=== PATIENT | female | born 1995 | race Caucasian/White ===

== ENCOUNTER → 2019-01-14 | Outpatient (CLI) | payer OTHER ==
--- NOTE | 2019-01-14 20:23 | CONS ---
CONSULTATION DATE OF SERVICE: 01/14/2019 23-year-old lady who has [facility] problem. She has episodes of night terrors, sometimes seeing vivid dreams, screaming, sleep talking, feels sleepy during the day. HISTORY OF PRESENT ILLNESS/SLEEP-WAKE EVALUATION: Patient referred mostly of her sleep problems for about 1 year. Presently her sleep schedule on working days from around 10 p.m. until 6 a.m. and on weekends from midnight until 8 or 9 a.m. Usually no problems with falling asleep. No TV in bedroom. She prefers to sleep on the stomach position only. Does not like to sleep on the side or on the back position. She usually sleeps through the night, but sometimes as I already mentioned above may have episodes of night terrors, screaming, sleep talking and sometimes possible sleepwalking when she moved to another room and then did not remember it from the next day, positive history of panic attacks. In the morning, patient wakes up tired. Worries about her sleep, has problems with concentration and anxiety. She may take one nap on afternoon time. Usually drinks about 2 cups of coffee a day. No clear history of sleep paralysis or cataplexy, but possible hypnagogic hallucinations. PAST MEDICAL HISTORY: Positive for episodes of anxiety. MEDICATIONS: Presently none. In the past, the patient was tried on Celexa and Effexor to help for anxiety, but it was not good effect of this medication was documented. The patient stopped using them. SOCIAL HISTORY: Negative for smoking, alcohol consumption occasional. PAST SURGICAL HISTORY: Past surgical history basically negative except for wisdom teeth removed. REVIEW OF SYSTEMS: Some irregularities of menstrual periods with 5 days of periods. FAMILY HISTORY: Hypertension, hyperlipidemia, sinus problems, lung problems, snoring, cancer, mental illness, acid reflux. PHYSICAL EXAM: girl without distress. BP 117/63, HR 80, RR 16, height 5 feet 1-1/2 inches, weight 176 pounds. Body mass index 32.7, temperature 97.9. Oxygen saturation at room air 99%. HEENT: Oropharynx low position of soft palate. Mallampati 4. Restriction of nasal breathing. NECK 13-1/2 inches in circumference. Supple, no JVD. Thyroid is not palpable. LUNGS Clear to percussion and to auscultation. Good air exchange. No wheezing or rhonchi. HEART S1, S2 regular. No murmurs, gallops, or rubs. ABDOMEN: Slightly obese. Soft and nontender. Bowel sounds are present. No organomegaly appreciated. EXTREMITIES No clubbing or cyanosis. [employer] Awake, alert, and oriented X3. Cranial nerves 2 to 7 intact. There is no fasciculation or atrophy. noted. No focal deficits observed. IMPRESSION: 1. Mild snoring. Extremely low position of soft palate. Restriction of nasal breathing, sleepiness during the day. Differential diagnosis includes obstructive sleep apnea. 2. Episodes of night terrors. 3. Episodes of sleep walking. 4. Sleep talking. 5. History of anxiety. 6. 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 PLAN: 1. Polysomnography for evaluation of patient's breathing during sleep. Also to check for possibility of parasomnias. 2. CPAP/BiPAP titration if sleep study confirms obstructive sleep apnea-hypopnea syndrome. 3. Preferable position during sleep on the side. 4. No driving if patient feels any sleepiness. 5. I will see patient for follow up visit to explain results of testing and following plan. 6. Multiple sleep latency test if the sleep study will be negative for obstructive sleep apnea-hypopnea syndrome or significant periodic limb movements. 7. Precautions related to possibility of sleepwalking, close the door for screen doors, no access to fire at night. Thank you very much for referring this patient for consultation. Sincerely, Grover Cm MD, PhD, FAASM Diplomat of [employer] Research And Evaluation Manager of [facility] [place] MMODL / IJN: [id number] /
== END ==
LOC: SLEEP 13:10
PROVIDERS: ATTEND Internal Medicine
DX: F51.4 Sleep terrors [night terrors] (principal); F41.9 Anxiety disorder, unspecified; F51.3 Sleepwalking [somnambulism]; G47.10 Hypersomnia, unspecified; G47.419 Narcolepsy without cataplexy; Z99.89 Dependence on other enabling machines and devices
CPT/HCPCS: 99211

== ENCOUNTER 2019-09-03 14:09 | Emergency (ER) | payer OTHER ==
[2019-09-03 14:37] VITALS: BP 117/79; PULSE 87; RESP 18; TEMP 99.4
[2019-09-03] MEDS ORDERED: DEXAMETHASONE SOD PHOSPHATE 10 MG/ML 1 ML VIAL IM STA (15:15)
--- NOTE | 2019-09-03 16:33 | ED ---
General Adult HPI - General Chief complaint: Shortness of Breath Stated complaint: Sob/swollen throat Time Seen by Provider: 09/03/19 14:56 Source: patient, RN notes reviewed Mode of arrival: ambulatory Limitations: no limitations - History of Present Illness Initial comments: 24 year old female presents to the emergency department for a chief complaint of sore throat. Patient states that she has had a sore throat for the past 5 days. States that she tested positive for mono 3 days ago. Strep test was negative at that time. Patient states she is here today because it does not seem to be improving. States that it is painful to swallow solids or liquids however patient is able to swallow both of these. She is handling secretions. Patient states Motrin does help with the pain. When she is lying flat in the middle of the night she sometimes feels short of breath. Patient was not given any steroids.Patient has no other complaints at this time including shortness of breath, chest pain, abdominal pain, nausea or vomiting, headache, or visual changes. - Related Data Previous Rx's Medication Instructions Recorded Lidocaine Viscous 2% [Xylocaine 5 ml MUCOUS MEM Q4-6H PRN #100 ml 09/03/19 Viscous] Allergies Allergy/AdvReac Type Severity Reaction Status Date / Time No Known Allergies Allergy Verified 09/03/19 14:36 Review of Systems ROS Statement: Those systems with pertinent positive or pertinent negative responses have been documented in the HPI. ROS Other: All systems not noted in ROS Statement are negative. Past Medical History Past Medical History: No Reported History Additional Past Medical History / Comment(s): mono History of Any Multi-Drug Resistant Organisms: None Reported Additional Past Surgical History / Comment(s): wisdom teeth Past Psychological History: No Psychological Hx Reported, Depression Smoking Status: Never smoker Past Alcohol Use History: Occasional Past Drug Use History: None Reported General Exam Limitations: no limitations General appearance: alert, in no apparent distress (Patient is handling secretions, no distress noted, resting comfortably lying back in stretcher.) Head exam: Present: atraumatic, normocephalic, normal inspection Eye exam: Present: normal appearance, PERRL, EOMI. Absent: scleral icterus, conjunctival injection, periorbital swelling ENT exam: Present: normal exam, mucous membranes moist, normal external ear exam. Absent: normal oropharynx (Uvula is midline, tonsillar pillars are symmetric, no evidence for peritonsillar abscess. Patient does have tonsillar exudates noted bilaterally and posterior oropharynx mildly erythematous.) Neck exam: Present: normal inspection. Absent: tenderness, meningismus, lymphadenopathy Respiratory exam: Present: normal lung sounds bilaterally. Absent: respiratory distress, wheezes, rales, rhonchi, stridor Cardiovascular Exam: Present: regular rate, normal rhythm, normal heart sounds. Absent: systolic murmur, diastolic murmur, rubs, gallop, clicks GI/Abdominal exam: Present: soft, normal bowel sounds. Absent: distended, tenderness, guarding, rebound, rigid Neurological exam: Present: alert Course Vital Signs 09/03/19 14:33 Temperature 99.4 F Pulse Rate 87 Respiratory 18 Rate Blood Pressure 117/79 O2 Sat by Pulse 98 Oximetry Medical Decision Making - Medical Decision Making Vitals are stable. Patient is in no distress, handling oral secretions and by mouth intake. Oropharynx is examined and patient does have bilateral tonsillar exudates however uvula is midline and there is no evidence of peritonsillar abscess. Pain does improve with Motrin. Patient was given IM Decadron. Mother also requested Magic mouthwash which was prescribed. I did discuss how to administer this and to gargle then spit rather than to swallow given toxicity of lidocaine. Recommended she follow up with primary care in 1-2 days. Mother states they will call Dr. Le on Friday. They will return here if patient has any worsening symptoms which were discussed in depth with patient. - Lab Data Lab Results 09/03/19 Range/Units 15:13 Group A Strep Rapid Negative (Negative) Disposition Clinical Impression: Mononucleosis Disposition: HOME SELF-CARE Condition: Good Instructions (If sedation given, give patient instructions): Mononucleosis (ED) Additional Instructions: Please take Motrin for pain and fever.. Please use lidocaine mouthwash as directed. Follow-up with primary care in 1-2 days. Return to the emergency department if you have any worsening symptoms. Magic mouthwash: Mix 5 mL of lidocaine with 5 mL of liquid Benadryl and 5 mL of liquid Maalox. Gargle and spit. You can buy Benadryl and Maalox [id number]. You can do this every 4-6 hours as needed for pain. Prescriptions: Lidocaine Viscous 2% [Xylocaine Viscous] 5 ml MUCOUS MEM Q4-6H PRN #100 ml PRN Reason: Pain Is patient prescribed a controlled substance at d/c from ED?: No Referrals: Lili Le MD [Primary Care Provider] - 1-2 days Time of Disposition: 16:04
== END 2019-09-03 17:00 | disposition home or self-care (01) ==
LOC: EC 14:09
DX: B27.90 Infectious mononucleosis, unspecified without complication (principal)
CPT/HCPCS: 87081; 87430; 99284; 96372; J1100